=== PATIENT | female | born 1945 | race Caucasian/White ===

== ENCOUNTER 2016-05-22 18:17 | Emergency (ER) | payer OTHER ==
[2016-05-22 18:24] VITALS: BP 154/91; TEMP 99.1; BMI 41.6
--- NOTE | 2016-05-22 19:00 | ED.PDOC ---
General ED Provider: Dr. SRIKANTH ROGERS-ER Chief Complaint: Extremity Pain/Injury Stated Complaint: my calf is swollen i think i have a blood clot Time Seen by Physician: 18:59 Mode of Arrival: Walk-In Information Source: Patient Exam Limitations: No limitations Primary Care Provider: RICARDO KINGSTON Nursing and Triage Documentation Reviewed and Agree: Yes Musculoskeletal Complaint Exam - Lower Extremity Complaint/Exam Location of Pain: Reports: Right, Leg Mechanism of Injury: Reports: No known trauma Onset/Duration: several hours Symptoms Are: Still present Onset of Pain: Reports: Immediate Initial Severity: Mild Current Severity: Mild Location: Reports: Discrete (right calf) Character: Reports: Dull, Aching Alleviating: Reports: Rest Aggravating: Reports: Movement, Weight bearing Able to Bear Weight: Yes Associated Signs and Symptoms: Reports: Swelling, Bruising Lower Extremity Findings: Present: Swelling, Ecchymosis, Tenderness NV Bundle Intact Distal to Injury: Yes Compartment Syndrome Risk Factors: Present: Pain. Absent: Paralysis, Pallor, Pulselessness, Paresthesias Differential Diagnoses: DVT Review of Systems - Review Of Systems Constitutional: Reports: No symptoms Eyes: Reports: No symptoms Ears, Nose, Mouth, Throat: Reports: No symptoms Respiratory: Reports: No symptoms Cardiac: Reports: No symptoms GI: Reports: No symptoms : Reports: No symptoms Musculoskeletal: Reports: Muscle pain Skin: Reports: No symptoms Neurological: Reports: No symptoms Endocrine: Reports: No symptoms Hematologic/Lymphatic: Reports: No symptoms All Other Systems: Reviewed and Negative Past Medical History - Past Medical History Endocrine: Reports: Unknown Cardiovascular: Reports: Unknown Respiratory: Reports: Unknown Hematological: Reports: Unknown Gastrointestinal: Reports: Unknown Genitourinary: Reports: Unknown Neuro/Psych: Reports: Unknown Musculoskeletal: Reports: Unknown Cancer: Reports: Unknown Last Menstrual Period: NA - Surgical History General Surgical History: Reports: Unknown - Family History Family History: Reports: Unknown - Social History Smoking Status: Never smoker Hx Substance Use: No Alcohol Screening: None Lives: With family - Immunizations Tetanus Shot up to Date: No Physical Exam - Physical Exam Appearance: Well-appearing, No pain distress, Well-nourished Eyes: RICHAR, EOMI, Conjunctiva clear ENT: Ears normal, Nose normal, Oropharynx normal Neck: Supple Respiratory: Airway patent, Breath sounds clear, Breath sounds equal, Respirations nonlabored Cardiovascular: RRR, Pulses normal, No rub, No murmur GI/: Soft, Nontender, No masses, Bowel sounds normal, No Organomegaly Musculoskeletal: Limited ROM, Calf tenderness Skin: Warm Neurological: Sensation intact, Motor intact, Reflexes intact, Cranial nerves intact, Alert, Oriented Psychiatric: Affect appropriate, Mood appropriate Critical Care Note - Critical Care Note Total Time (mins): 0 Course - Course Orders, Labs, Meds: she has calf pain and swelling--she understands she needs venous scan--she does not want to be transferred to [facility] for scan and elects to leave the hospital [facility] Vital Signs: Temp Pulse Resp BP Pulse Ox 05/22/16 18:18 99.1 F 80 16 154/91 H 98 Departure - Departure Time of Disposition: 18:59 Disposition: AMA Discharge Problem: Pain in extremity Qualifiers: Extremity pain location: lower extremity Laterality: right Qualifier Code: ( M79.604) Pain in right leg Instructions: Leg Cramps (ED) Condition: Good Pt referred to PMD for follow-up: Yes Allergies/Adverse Reactions: Allergies No Known Allergies Allergy (Unverified 05/22/16 18:27) Disposition Discussed With: Patient, Family
== END 2016-05-22 19:30 | disposition left against medical advice (07) ==
LOC: ED 18:17
DX: M79.604 Pain in right leg (principal); M79.89 Other specified soft tissue disorders; M79.1 Myalgia
CPT/HCPCS: 99284

== ENCOUNTER 2017-02-09 19:26 | Outpatient (CLI) | payer OTHER | END 2017-02-09 20:17 | disposition short-term general hospital (02) | LOC: AMBL 19:26 | PROVIDERS: ATTEND Internal Medicine Geriatric Medicine | DX: R55 Syncope and collapse (principal); R42 Dizziness and giddiness; R53.1 Weakness; E78.5 Hyperlipidemia, unspecified; Z95.0 Presence of cardiac pacemaker; Z95.2 Presence of prosthetic heart valve; Z79.01 Long term (current) use of anticoagulants ==

== ENCOUNTER 2017-07-26 13:18 | Emergency (ER) | payer OTHER ==
[2017-07-26 13:27] VITALS: BP 129/84; TEMP 96.8; BMI 39.8
--- NOTE | 2017-07-26 14:34 | ED.PDOC ---
General ED Provider: Dr. SRIKANTH MADRID Chief Complaint: Extremity Swelling/Pain Stated Complaint: Pain in Rt Calf and posterior knee. Awakened yesterday morning the the discomfort. Was sent for doppler flow Venous US yesterday at [facility] to R/O DVT which was negative. Has persisted pain today. Notes swelling migrating down posterior leg to ankle. Denies fever chills or night sweats. Time Seen by Physician: 13:50 Mode of Arrival: Walk-In Information Source: Patient Exam Limitations: No limitations Primary Care Provider: RICARDO KINGSTON Seen Within Last 72 Hours for Same Complaint By: Clinic Nursing and Triage Documentation Reviewed and Agree: Yes Reviewed sepsis parameters & appropriate labs ordered?: Yes System Inflammatory Response Syndrome: Not Applicable Sepsis Protocol: For patient's 13 years and over: Temp is 96.8 and below OR 101 and greater Pulse >90 BPM Resp >20/minute Acutely Altered Mental Status Are patient's symptoms suggestive of a new infection, such as: -Pneumonia -Skin, Soft Tissue -Endocarditis -UTI -Bone, Joint Infection -Implantable Device -Acute Abdominal Infection -Wound Infection -Meningitis -Blood Stream Catheter Infection -Unknown System Inflammatory Response Syndrome: Not Applicable Musculoskeletal Complaint Exam - Lower Extremity Complaint/Exam Location of Pain: Reports: Right, Leg, Knee Mechanism of Injury: Reports: No known trauma Symptoms Are: Still present Onset of Pain: Reports: Immediate Initial Severity: Severe Current Severity: Mild Location: Reports: Diffuse Character: Reports: Dull, Aching Alleviating: Reports: Rest Aggravating: Reports: Movement Able to Bear Weight: Yes Associated Signs and Symptoms: Reports: Swelling, Bruising (in medial aspect rt foot ). Denies: Redness DVT Risk Factors: Reports: None Septic Arthritis Risk Factors: Reports: None Related Surgical History: Reports: None Lower Extremity Findings: Present: Swelling, Ecchymosis NV Bundle Intact Distal to Injury: No Compartment Syndrome Risk Factors: Absent: Pain, Paralysis, Pallor, Pulselessness, Paresthesias Babak's Sign Present: No Differential Diagnoses: Contusion, DVT Review of Systems - Review Of Systems Constitutional: Reports: No symptoms Eyes: Reports: No symptoms Ears, Nose, Mouth, Throat: Reports: No symptoms Respiratory: Reports: No symptoms Cardiac: Reports: No symptoms GI: Reports: No symptoms : Reports: No symptoms Musculoskeletal: Reports: Muscle pain, Other (swelling) Skin: Reports: No symptoms Neurological: Reports: No symptoms Endocrine: Reports: No symptoms Hematologic/Lymphatic: Reports: No symptoms All Other Systems: Reviewed and Negative Past Medical History - Past Medical History Endocrine: Reports: Unknown Cardiovascular: Reports: Unknown Respiratory: Reports: Unknown Hematological: Reports: Unknown Gastrointestinal: Reports: Unknown Genitourinary: Reports: Unknown Neuro/Psych: Reports: Unknown Musculoskeletal: Reports: Unknown Cancer: Reports: Unknown Last Menstrual Period: NA - Surgical History General Surgical History: Reports: Unknown - Family History Family History: Reports: Unknown - Social History Smoking Status: Never smoker Hx Substance Use: No Alcohol Screening: None Physical Exam - Physical Exam Appearance: Well-appearing, No pain distress, Well-nourished Ill-appearing: Mild Pain Distress: Mild Eyes: RICHAR, EOMI, Conjunctiva clear ENT: Ears normal, Nose normal, Oropharynx normal Respiratory: Airway patent, Breath sounds clear, Breath sounds equal, Respirations nonlabored Cardiovascular: RRR, Pulses normal, No rub, No murmur GI/: Soft, Nontender, No masses, Bowel sounds normal, No Organomegaly Musculoskeletal: Normal strength, ROM intact, No edema, Calf tenderness Skin: Warm, Dry, Normal color Neurological: Sensation intact, Motor intact, Reflexes intact, Cranial nerves intact, Alert, Oriented Psychiatric: Affect appropriate, Mood appropriate Interpretation - Radiology Interpretation Radiology Results: No acute changes Exam Interpreted: CT Scan, Other (Rt Knee and leg) Critical Care Note - Critical Care Note Total Time (mins): 0 Course - Course Hematology/Chemistry: 07/26/17 14:59 07/26/17 14:59 Orders, Labs, Meds: Lab Review 07/26/17 07/26/17 14:59 14:59 WBC 6.58 RBC 4.27 Hgb 13.0 Hct 39.3 MCV 92.0 MCH 30.4 MCHC 33.1 RDW Coeff of Alyson 12.7 Plt Count 230 Immature Gran % (Auto) 0.2 Neut % (Auto) 66.1 Lymph % (Auto) 22.9 Overton % (Auto) 8.1 Eos % (Auto) 2.1 Baso % (Auto) 0.6 Immature Gran # (Auto) 0.0 Neut # (Auto) 4.4 Lymph # (Auto) 1.5 Overton # (Auto) 0.5 Eos # (Auto) 0.1 Baso # (Auto) 0.0 Sodium 141 Potassium 4.5 Chloride 105 Carbon Dioxide 26 Anion Gap 14.5 BUN 13 Creatinine 0.73 Estimated GFR (MDRD) 78.00 BUN/Creatinine Ratio 17.80 Glucose 112 Calcium 9.1 Total Bilirubin 0.8 AST 25 ALT 19 Alkaline Phosphatase 99 Total Protein 6.6 Albumin 3.1 L Globulin 3.5 Albumin/Globulin Ratio 0.89 Orders Category Date Time Status CBC W/ AUTO DIFF Stat LAB 07/26/17 14:59 Completed CMP [COMPREHENSIVE METABOLIC PANEL] Stat LAB 07/26/17 14:[address] KNEE RIGHT WITHOUT CONTRAST Stat RADS 07/26/17 14:[address] TIB/FIB RIGHT WO CONTRAST Stat RADS 07/26/17 14:46 Completed Vital Signs: Temp Pulse Resp BP Pulse Ox 07/26/17 13:22 96.8 F L 69 16 129/84 96 Departure - Departure Time of Disposition: 17:45 Disposition: HOME SELF-CARE Discharge Problem: Leg edema, left, Velez's cyst of knee Instructions: Bakers Cyst (ED) Condition: Good Pt referred to PMD for follow-up: Yes IPMP verified?: Yes Additional Instructions: Minimize up activity Keep leg elevated to alleviated swelling FOllow up PCP 1 week Allergies/Adverse Reactions: Allergies meperidine [From Demerol] Adverse Reaction (Verified 07/26/17 13:21) Home Medications: Ambulatory Orders Alprazolam [Xanax] 0.5 mg PO BID PRN 07/26/17 Biotin 10 mg PO DAILY 07/26/17 Calcium Carbonate/Vitamin D3 [Calcium 600 + Vit D 400 Tablet] 1 tab PO DAILY Cholecalciferol (Vitamin D3) [Vitamin D3] 1,000 unit PO BID 07/26/17 Citalopram Hydrobromide [Celexa] 20 mg PO DAILY 07/26/17 Estradiol [Estrace] 1 mg PO DAILY 07/26/17 Furosemide [Lasix] 20 mg PO DAILY 07/26/17 Hydrocodone Bit/Acetaminophen [[place] 7.5-325] 1 each PO Q6HR PRN 07/26/17 Metoprolol Succinate [Toprol Xl] 50 mg PO DAILY 07/26/17 Multivitamin with Minerals [Multiple Vitamin] 1 each PO DAILY 07/26/17 Omeprazole [Prilosec] 20 mg PO QDAC 07/26/17 Potassium Chloride [K-Tab ER] 20 meq PO DAILY 07/26/17 Pravastatin Sodium [Pravachol] 80 mg PO DAILY 07/26/17 Vitamin E 400 unit PO DAILY 07/26/17 Warfarin Sodium [Coumadin] 5 mg PO DAILY 07/26/17 Disposition Discussed With: Patient, Family
--- NOTE | 2017-07-26 17:38 | CT ---
EXAM: CT right tibia and fibula without contrast HISTORY: Pain and swelling. COMPARISON: CT right knee same day. TECHNIQUE: Serial axial images of the right tibia and fibula were obtained without contrast. These were viewed in multiple planes. FINDINGS: The tibia demonstrates no cortical irregularity or displaced fracture. There is no lytic o r blastic lesion. The fibula is normal in appearance. There is no abnormal periosteal reaction. Th ere is no lytic or blastic lesion. There is minimal degenerative disease of the ankle. There is rig ht knee arthroplasty hardware better evaluated on same day CT right knee. There is mild scattered deg enerative disease in the midfoot. Soft tissues demonstrate minimal effusion. There is subcutaneous edema. IMPRESSION: 1. No acute abnormality or fracture of the tibia and fibula. 2. 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 3. Right knee arthroplasty hardware is stable. 4. Small knee effusion and scattered mild subcutaneous edema.
--- NOTE | 2017-07-26 17:43 | CT ---
Exam: CT of the right knee without contrast History: Pain and swelling Technique: [address] of the right knee with multiplanar reformations FINDINGS: Right knee arthroplasty in place. No tai-hardware fracture or evidence of loosening. No joint effusion. Edema circumferentially in the soft tissues. No organizing inflammatory mass. Den se collection in the medial gastrocnemius measuring cross section 1.5 x 3.4 cm and cranial caudal kathy meter of 6 cm. Atherosclerotic vascular calcifications are present. Impression: 1. No acute bony or articular abnormality of the right knee. Right knee arthroplasty in place. 2. Intramuscular gastrocnemius hematoma
== END 2017-07-26 17:56 | disposition home or self-care (01) ==
LOC: ED 13:18
DX: R60.0 Localized edema (principal); M71.21 Synovial cyst of popliteal space [Baker], right knee
CPT/HCPCS: 36415; 80053; 85025; 99283